=== PATIENT | female | born 1965 | race African-American/Black ===

== ENCOUNTER → 2022-12-10 11:44 | Outpatient (CLI) | payer OTHER, SELFPAY ==
--- NOTE | 2022-12-10 12:00 | ECG_ITS ---
APPROVED REPORT Exam: Resting ECG HR:72 bpm ECG Measurements Heart Rate 72 AXES UT 207 P 57 QRSd 93 QRS 52 QT 383 T 42 QTc 407 Conclusion SINUS RHYTHM POSSIBLE LEFT ATRIAL ENLARGEMENT Poor R wave progression. ABNORMAL ECG UNCONFIRMED REPORT Electronically signed by : Carlos Ferreira MD 12/10/2022 13:49:36
--- NOTE | 2022-12-10 12:04 | XR_ITS ---
FINAL REPORT CLINICAL HISTORY: pre-op testing, cough COMPARISON: None FINDINGS: Two views of the chest were obtained. The heart size and pulmonary vascularity are within normal limits. The mediastinum is normal. There is mild atelectasis or scar in the left lung base. There is no pneumothorax. The bony thorax is intact. IMPRESSION: Mild atelectasis or scar left lung base. Reviewed, Interpreted and Dictated by Demond Molina III, MD Transcribed by Fabiola Mathews Authenticated and . [facility]
[2022-12-10 13:09] LABS: Basophils # 0.1 K/mm3 (0-0.2); Basophils % 0.6 % (0.1-2.0); Eosinophils # 0.2 K/mm3 (0.0-0.4); Eosinophils % 2.7 % (0.1-12.0); Hematocrit 36.8 % (37.0-47.0); Hemoglobin 11.6 g/dL (12.2-16.2); Lymphocytes # 2.7 K/mm3 (0.7-4.5); Lymphocytes % 33.6 % (10-50); Mean Corpuscular HGB Conc 31.4 g/dL (31.8-35.4); Mean Corpuscular Hemoglobin 29.8 pg (27.0-31.2); Mean Corpuscular Volume 94.9 fl (81-99); Mean Platelet Volume 10.1 fl (7.4-10.4); Monocytes # 0.4 K/mm3 (0.1-1.0); Monocytes % 4.3 % (1.7-9.3); Neutrophils # 4.8 K/mm3 (1.8-7.8); Neutrophils % 58.8 % (37.0-80.0); Platelet Count 279 K/mm3 (142-424); Red Blood Count 3.88 M/mm3 (4.20-5.40); Red Cell Distribution Width 15.3 % (11.5-17.5); White Blood Count 8.1 K/mm3 (4.8-10.8)
[2022-12-10 13:47] LABS: Chloride 107 mmol/L (98-107); Potassium 3.7 mmoL/L (3.5-5.1)
[2022-12-10 13:50] LABS: Alanine Aminotransferase 32 U/L (12-78); Albumin Level 4.3 g/dl (3.5-5.0); Albumin/Globulin Ratio 1.5 (1.1-1.8); Alkaline Phosphatase 110 U/L (38-126); Aspartate Amino Transferase 31 U/L (14-36); Bilirubin,Total 0.5 mg/dl (0.2-1.3); Blood Urea Nitrogen 13 mg/dl (7-17); Carbon Dioxide 27 mmol/L (22.0-30.0); Estimated Glomerular Filt Rate 57 ml/min (>60); GFR (African American) 69 ML/MIN (>60); Globulin 2.9 g/dL (1.3-3.2); Total Protein,Serum 7.2 g/dl (6.3-8.2)
[2022-12-10 13:51] LABS: Calcium 9.1 mg/dl (8.4-10.2); Glucose 92 mg/dl (74-100)
[2022-12-10 14:22] LABS: Anion Gap 10.7 mEq/L (5-15); Sodium 141 mmol/L (136-145)
== END ==
PROVIDERS: Visit Provider Podiatrist
DX: Z01.818 Encounter for other preprocedural examination (principal); M20.41 Other hammer toe(s) (acquired), right foot; M20.42 Other hammer toe(s) (acquired), left foot
CPT/HCPCS: 36415; 71046; 80053; 85025; 93005

== ENCOUNTER → 2023-03-11 14:25 | Outpatient (CLI) | payer MEDICAID, SELFPAY ==
--- NOTE | 2023-03-11 14:30 | XR_ITS ---
FINAL REPORT CLINICAL HISTORY: HTN PRE OP FOR BILATERAL HAMMER TOE COMPARISON: 11/20/2022 FINDINGS: TWO-VIEW CHEST The heart size is normal. The mediastinum is normal. There is mild bibasilar atelectasis. There is no pneumothorax. IMPRESSION: Mild bibasilar atelectasis. Reviewed, Interpreted and Dictated by Demond Molina III, MD Transcribed by Naomie Rajan Authenticated and [facility]
--- NOTE | 2023-03-11 14:35 | XR_ITS ---
FINAL REPORT CLINICAL HISTORY: foot pain FINDINGS: Right foot Three views were obtained. There is no acute fracture or dislocation. There are mild degenerative changes. Small plantar calcaneal spur is identified. No soft tissue abnormality is identified. IMPRESSION: Mid degenerative changes. Reviewed, Interpreted and Dictated by Demond Molina III, MD Transcribed by Naomie Rajan Authenticated and [facility]
--- NOTE | 2023-03-11 14:39 | XR_ITS ---
FINAL REPORT CLINICAL HISTORY: foot pain FINDINGS: Left foot Three views were obtained. There is no acute fracture or dislocation. There are chronic 2nd, 3rd, and 4th metatarsal fractures. There are mild degenerative changes. No soft tissue abnormality is identified. IMPRESSION: Degenerative and chronic appearing findings. Reviewed, Interpreted and Dictated by Demond Molina III, MD Transcribed by Naomie Rajan Authenticated and [facility]
--- NOTE | 2023-03-11 15:05 | ECG_ITS ---
APPROVED REPORT Exam: Resting ECG HR:76 bpm ECG Measurements Heart Rate 76 AXES [place] 194 P 62 QRSd 82 QRS 53 QT 340 T 33 QTc 371 Conclusion SINUS RHYTHM NORMAL ECG UNCONFIRMED REPORT Electronically signed by : Carlos Ferreira MD 03/11/2023 21:14:08
[2023-03-11 17:10] LABS: Alanine Aminotransferase 48 U/L (12-78); Albumin/Globulin Ratio 1.6 (1.1-1.8); Alkaline Phosphatase 101 U/L (38-126); Anion Gap 17.1 mEq/L (5-15); Aspartate Amino Transferase 33 U/L (14-36); Bilirubin,Total 0.2 mg/dl (0.2-1.3); Blood Urea Nitrogen 25 mg/dl (7-17); Calcium 9.5 mg/dl (8.4-10.2); Carbon Dioxide 27 mmol/L (22.0-30.0); Chloride 99 mmol/L (98-107); Estimated Glomerular Filt Rate 57 ml/min (>60); GFR (African American) 69 ML/MIN (>60); Globulin 2.5 g/dL (1.3-3.2); Glucose 75 mg/dl (74-100); Potassium 4.1 mmoL/L (3.5-5.1); Sodium 139 mmol/L (136-145); Total Protein,Serum 6.5 g/dl (6.3-8.2)
[2023-03-11 17:21] LABS: Basophils % 0.3 % (0.1-2.0); Eosinophils # 0.2 K/mm3 (0.0-0.4); Eosinophils % 1.2 % (0.1-12.0); Hematocrit 36.9 % (37.0-47.0); Hemoglobin 11.8 g/dL (12.2-16.2); Lymphocytes # 3.2 K/mm3 (0.7-4.5); Lymphocytes % 21.9 % (10-50); Mean Corpuscular Volume 93.6 fl (81-99); Mean Platelet Volume 11.1 fl (7.4-10.4); Monocytes # 0.6 K/mm3 (0.1-1.0); Monocytes % 4.4 % (1.7-9.3); Neutrophils # 10.5 K/mm3 (1.8-7.8); Neutrophils % 72.2 % (37.0-80.0); Platelet Count 209 K/mm3 (142-424); Red Blood Count 3.95 M/mm3 (4.20-5.40); Red Cell Distribution Width 14.9 % (11.5-17.5); White Blood Count 14.6 K/mm3 (4.8-10.8)
== END ==
PROVIDERS: Visit Provider Podiatrist
DX: Z01.810 Encounter for preprocedural cardiovascular examination (principal); G89.29 Other chronic pain; M79.671 Pain in right foot; M79.672 Pain in left foot; M20.41 Other hammer toe(s) (acquired), right foot; M20.42 Other hammer toe(s) (acquired), left foot; M79.674 Pain in right toe(s); M79.675 Pain in left toe(s)
CPT/HCPCS: 36415; 71046; 73630; 80053; 85025; 93005

== ENCOUNTER 2023-04-03 09:16 | Day surgery (SDC) | payer MEDICAID, SELFPAY ==
[2023-03-31 10:24] VITALS: BMI 45.1
[2023-04-03 09:50] VITALS: BP 139/57; PULSE 92; RESP 20; TEMP 36.6; O2SAT 96
--- NOTE | 2023-04-03 14:02 | EXP.ANES.CKL ---
[facility] Disclaimer: The information contained in this section may have been updated after the patient was seen, as this information can be updated by other users. Medical History Anxiety Bipolar disorder Depression Hammertoes of both feet High blood pressure Hyperlipidemia Surgical History History of facial surgery Family History Family/Other Diabetes Other Family history of cancer Family history of hypertension Social History Smoking Status: Never smoker alcohol intake: never substance use type: denies use current occupational status: unemployed Travel in the last 8 weeks: None household members: none housing: apartment lives independently: Yes marital status: legally education level: high school service: No caffeine: Yes special kathie needs: No do you feel safe at home: Yes victim of physical abuse: No victim of emotional abuse: No victim of sexual abuse: No would you like helpful sources: No [facility] Anesthesia Checklist Patient Identification Patient Identification: Arm Band Structural Data Admitted From: Home Planned Operative Procedure/s: Bilateral 5th Hammertoe Repair Consent for Planned Operative Procedure(s) Verified: Yes Verified Documents: Surgical Consent and History and Physical NPO Status Verified Time NPO: 00:00 Additional verifications Anesthesia Reactions: No Hx Blood Transfusions: No Blood Transfusion Reaction: No Airway Assessment C-Spine Mobility Assessed: Yes TMJ Mobility Assessed: Yes (MP3) Dentition: Good Dentition Neurological Assessment Level of Consciousness: Awake and Alert Anesthesia Plan Anesthesia Risk discussed: Yes Anesthesia Plan: Verified ASA Class: III Anesthesia Type: MAC
[2023-04-03 14:50] VITALS: BP 109/56; PULSE 80; RESP 16; TEMP 36.2; O2SAT 98
--- NOTE | 2023-04-03 14:53 | EXP.OP.NOTE ---
Date of procedure: 04/03/23 Pre-op Diagnosis:: hammertoe deformities bilateral fifth toes, with painful corns and deviated toe deformities. Post-op Diagnosis:: same Procedure performed:: hammertoe correction both fifth toes with arthroplasty derotation left fifth toe with middle phalangectomy and proximal phalangeal head resection; right fifth toe middle phalangectomy derotational arthroplasty hammertoe correcion. Surgeon:: Aldo Jeffers DPM SHREDDER TENDER:: Juanito Sauer Anesthesia: MAC Estimated blood loss (mL): 6 Operative findings:: expected Operative note:: On this date and time patient was deemed an appropriate surgical candidate. Discussed with patient and her accompanying friend the planned fifth toe procedures and risks associated and no guarantees were given. I had already discussed prior with patient that all of her toes were hammered, and also the fifth toes were influenced greatly by the tailor's bunions bilateral, and she didn't want at this time to proceed with the multiple toe/fifth met head surgeries. With informed consent signed, the patient was taken to the operating theater by bilateral fifth toe arthroplasties/hammertoe corrections. The patient was positioned supine. MAC anesthesia was induced. Timeout was performed. Anesthetized bilateral fifth digits (at MPJ level) with 50/50 mix of 1% xylocaine/ 0.5% marcaine, 8 ccs per foot. Both feet were prepped and draped in asceptic technique. [place] bandages used to exsanguinate both feet and secured above the malleoli. Left fifth hammertoe is significantly rotated in varus, with corn at distal lateral foot, entire middle phalanx lateral impact with ground forces, and rotated toe Digit: Attention was directed to the left fifth toe, where a wedge incision was mapped out over the middle phalanx extending distally over the PIPJ. Dissection was carried thru skin and sub q tissue, with care to maintain surgical hemostasis. Transverse tenotomy performed at the PIPJ and DIPJ, with release of the medial and lateral collateral ligaments. The head of the proximal and entire middle phalanx was removed, exposing good cancellous bone. The surgical area was flushed with copious amounts of normal sterile saline. The tendon was repaired with 3-0 Nylon was used to close skin in an interrupted mattress and simple suture fashion and skin was remodeled for appropriate closure. Right fifth hammertoe is rotated in varus, with corn at middle phalanx lateral impact with ground forces, and mildly rotated toe Digit: Attention was directed to the right fifth toe, where a wedge incision was mapped out over the middle phalanx extending distally over the PIPJ. Dissection was carried thru skin and sub q tissue, with care to maintain surgical hemostasis. Transverse tenotomy performed at the PIPJ and DIPJ, with release of the medial and lateral collateral ligaments. The entire middle phalanx was removed and when placed in rectus, the toe maintained position. The surgical site was flushed with copious amounts of normal sterile saline. The tendon was repaired with 3-0 Nylon was used to close skin in an interrupted mattress and simple suture fashion and skin was remodeled for appropriate closure. Bilateral eschmark bandages were released and prompt hyperemic response was noted to both fifth toes. Dressed toes with Adaptic, gauze, Kerlix, 4 elastic bandages toes to ankles. Keep clean, dry, intact. Discharge/Plan: D/C home today when ready and vital signs stable. Patient is to maintain dressing clean dry and intact. Ice to the ankle and elevate on two pillows. Bear weight , use surgery shoes, limit to bathroom and necessities for a week Follow up in one week at [facility] with Dr. Jeffers. Gave cell number to reach for urgency; otherwise, if emergent, report to ER. Condition: stable Disposition: same day Complications:: negative
[2023-04-03 15:00] VITALS: BP 121/86; PULSE 78; RESP 16; O2SAT 97
[2023-04-03 15:10] VITALS: BP 142/68; PULSE 77; RESP 18; O2SAT 97
[2023-04-03 15:20] VITALS: BP 107/73; PULSE 78; RESP 16; TEMP 36.6; O2SAT 98
== END 2023-04-03 15:35 | disposition home or self-care (01) ==
PROVIDERS: Visit Provider Podiatrist
PROC: (CPT 28285; principal; 2023-04-03 11:15)
DX: M20.41 Other hammer toe(s) (acquired), right foot (principal); M20.42 Other hammer toe(s) (acquired), left foot; M79.675 Pain in left toe(s); M79.674 Pain in right toe(s); I10 Essential (primary) hypertension; Z79.899 Other long term (current) drug therapy
CPT/HCPCS: 28285; 96374; J2704